=== PATIENT | female | born 1975 | race American Indian/Alaskan Native ===

== ENCOUNTER 2017-05-26 18:23 | Emergency (ER) | payer MEDICAID ==
[2017-05-26 18:32] VITALS: BP 174/107
--- NOTE | 2017-05-26 20:03 | Emergency Department Report ---
Abscess Boil HPI - HPI Chief Complaint: Skin/Abscess/Foreign Body Stated Complaint: KNOT ON RIGHT SHOULDER Time Seen by Provider: 05/26/17 20:02 Duration: >1 Week Location: Other (R SHOULDER) Severity: Mild History: Yes Previous History, No Fever, No Pain, No Purulent Drainage, No Numbness, No Foreign Body, No Insect Bite HPI: THIS CYST HAS BEEN ON R SHOULDER FOR MONTHS. CYST IN NATURE. NOT ABSCESS. NON ILL. NON TOXIC. NO FEVER. NO FLAT Home Medications: Previous Rx's Medication Instructions Recorded Last Taken Type Cephalexin [Keflex] 500 mg PO Q12HR #20 cap 05/26/17 Unknown Rx Allergies/Adverse Reactions: Allergies Allergy/AdvReac Type Severity Reaction Status Date / Time No Known Allergies Allergy Unverified 05/26/17 18:30 ED Review of Systems ROS: Stated complaint: KNOT ON RIGHT SHOULDER Other details as noted in HPI Comment: All other systems reviewed and negative Skin: other (R SHOULDER CYST) ED Past Medical Hx - Past Medical History Previous Medical History?: No - Surgical History Additional Surgical History: C/S - Social History Smoking Status: Never Smoker Substance Use Type: Alcohol - Medications Home Medications: Home Medications Medication Instructions Recorded Confirmed Last Taken Type Cephalexin [Keflex] 500 mg PO Q12HR #20 cap 05/26/17 Unknown Rx ED Abscess Boil Physical Exam - Exam General: Vital signs noted. No distress. Alert and acting appropriately. Front/Back of Body, Lg (Color): 1 - CYST Size: 2 cm Exam: Yes Surrounding Cellulites/Erythema (RED), Yes Normal Neurologic Exam, Yes Normal Circulation, No Tenderness, No Fluctuance, No Lymphangitis, No Crepitation, No Heart Murmur Exam: X FOR CYST EXAM WNL. S1 S2. LUNGS CTA. ABD SNT. NEURO INTACT I & D Note - I & D Note I & D Note: NONE ED Course Vital Signs 05/26/17 18:30 Temperature 98.7 F Pulse Rate 115 H Respiratory 18 Rate Blood Pressure 174/107 O2 Sat by Pulse 99 Oximetry - Reevaluation(s) Reevaluation #1: 05/26/17 20:27 TO ER W CYST ON R SHOULDER BP ELEVATED NO HX PT SAYS JUST WORRIED SHE TOOK EARLIER TODAY AND IT WAS N HR 100 ON EXAM NO FEVER NO CP NO SOB NON TOXIC APPEARING PT EDUCATED ON CYST V ABSCESS MEDICATED DC W OUTPT FOLLOW UP FOR BP AND FOR CYST Critical care attestation.: If time is entered above; I have spent that time in minutes in the direct care of this critically ill patient, excluding procedure time. ED Medical Decision Making - Medical Decision Making SEE NOTE - Differential Diagnosis ABSCESS V CYST ED Disposition Clinical Impression: Cyst, Elevated blood pressure reading Disposition: DC-01 TO HOME OR SELFCARE Is pt being admited?: No Does the pt Need Aspirin: No Condition: Stable Instructions: Heart Healthy Diet (ED), How to Take a Blood Pressure (ED), Perry's Cyst (ED) Additional Instructions: MONITOR YOUR BLOOD PRESSURE FOLLOW UP WITH PRIMARY MD THIS WEEK TO REEVALUATE- SEE LIST BELOW EXFOLIATE SKIN WELL KEFLEX ORDERED HERE TONIGHT EPSOM SALT SOAKS MAY HELP SEE DERM FOR FOLLOW UP RELATED TO CYST ON SHOULDER. LOW SALT DIET FOR BLOOD PRESSURE CONTROL CLEAN CYST WITH SOAP AND WATER Prescriptions: Cephalexin [Keflex] 500 mg PO Q12HR #20 cap Referrals: PRIMARY CARE, [Primary Care Provider] - 3-5 Days KHLOE WILLAMS MD [Staff Physician] - 3-5 Days NAZARIO CORRALES MD [Referring] - 3-5 Days [facility] [Outside] - 3-5 Days [facility] [Outside] - 3-5 Days Time of Disposition: 20:10
[2017-05-26] MEDS ORDERED: KEFLEX PO ONE (20:09)
== END 2017-05-26 20:36 | disposition home or self-care (01) ==
LOC: ED 18:23
DX: R03.0 Elevated blood-pressure reading, without diagnosis of hypertension (principal); M25.511 Pain in right shoulder
CPT/HCPCS: 99282

== ENCOUNTER 2018-03-12 07:52 | Emergency (ER) | payer MEDICAID ==
[2018-03-12] MEDS ORDERED: NACL 0.9% 1000 ML 1,000 ML IV ONE (08:00)
[2018-03-12 08:22] LABS: Basophils # (Auto) 0.1 K/mm3 (0.0-0.1); Basophils % (Auto) 0.9 % (0.0-1.8); Eosinophils # (Auto) 0.1 K/mm3 (0.0-0.4); Eosinophils % (Auto) 0.9 % (0.0-4.3); Hematocrit 39.3 % (30.3-42.9); Hemoglobin 13.4 gm/dl (10.1-14.3); Lymphocytes # (Auto) 1.9 K/mm3 (1.2-5.4); Lymphocytes % (Auto) 30.1 % (13.4-35.0); Mean Corpuscular HGB Conc 34 % (30-34); Mean Corpuscular Hemoglobin 29 pg (28-32); Mean Corpuscular Volume 86 fl (79-97); Monocytes # (Auto) 0.7 K/mm3 (0.0-0.8); Monocytes % (Auto) 10.7 % (0.0-7.3); Platelet Count 269 K/mm3 (140-440); Red Blood Count 4.57 M/mm3 (3.65-5.03); Red Cell Distribution Width 14.5 % (13.2-15.2)
[2018-03-12 08:36] LABS: Bilirubin,Urine NEG (Negative); Blood,Urine SM (Negative); Color,Urine Yellow (Yellow); Protein,Urine <15 mg/dL mg/dL (Negative)
[2018-03-12 08:39] LABS: Alanine Aminotransferase 15 units/L (7-56); Albumin 3.9 g/dL (3.9-5); BUN/Creatinine Ratio 17; Blood Urea Nitrogen 12 mg/dL (7-17); Calcium 8.6 mg/dL (8.4-10.2); Hemolysis Index 9
--- NOTE | 2018-03-12 08:57 | Emergency Department Report ---
ED General Adult HPI - General Chief complaint: Abdominal Pain Stated complaint: ABD PAIN/RIGHT WRIST PAIN Time Seen by Provider: 03/12/18 08:56 Source: patient Mode of arrival: Ambulatory Limitations: No Limitations - History of Present Illness Initial comments: 42-year-old female with a history of hypertension presents with the complaint of abdominal pain. Patient states she's been having abdominal pain in her upper abdominal region since Saturday. Patient denies vomiting or diarrhea. Patient states she's taken no meds for the pain. Patient states the pain is a 5 out of 10. Patient has had no fever. Patient denies any dysuria, hematuria, or urinary frequency. Patient denies any hematemesis or hematochezia. Patient also complains of right wrist pain for the past week but denies any trauma to her wrist. Patient has full range of motion at the wrists and denies fever. - Related Data Previous Rx's Medication Instructions Recorded Last Taken Type cephALEXin [Keflex] 500 mg PO Q12HR #20 cap 05/26/17 Unknown Rx Ciprofloxacin HCl [Ciprofloxacin 500 mg PO Q12H 7 Days #14 tab 03/12/18 Unknown Rx TAB] Ondansetron (Nf) [Zofran TAB] 4 mg PO Q8HR PRN #16 tablet 03/12/18 Unknown Rx metroNIDAZOLE [Flagyl] 500 mg PO Q12HR 7 Days #14 tab 03/12/18 Unknown Rx traMADol [Ultram] 50 mg PO Q6HR PRN #20 tablet 03/12/18 Unknown Rx Allergies Allergy/AdvReac Type Severity Reaction Status Date / Time No Known Allergies Allergy Verified 03/12/18 07:58 ED Review of Systems ROS: Stated complaint: ABD PAIN/RIGHT WRIST PAIN Other details as noted in HPI Constitutional: denies: chills, fever Eyes: denies: eye pain, eye discharge, vision change ENT: denies: ear pain, throat pain Respiratory: denies: cough, shortness of breath, wheezing Cardiovascular: denies: chest pain, palpitations Endocrine: no symptoms reported Gastrointestinal: abdominal pain. denies: nausea, diarrhea Genitourinary: denies: urgency, dysuria, discharge Musculoskeletal: arthralgia. denies: back pain, joint swelling Skin: denies: rash, lesions Neurological: denies: headache, weakness, paresthesias Psychiatric: denies: anxiety, depression Hematological/Lymphatic: denies: easy bleeding, easy bruising ED Past Medical Hx - Past Medical History Hx Hypertension: Yes - Surgical History Additional Surgical History: C/S - Social History Smoking Status: Never Smoker Substance Use Type: Alcohol - Medications Home Medications: Home Medications Medication Instructions Recorded Confirmed Last Taken Type cephALEXin [Keflex] 500 mg PO Q12HR #20 cap 05/26/17 Unknown Rx Ciprofloxacin HCl [Ciprofloxacin 500 mg PO Q12H 7 Days #14 tab 03/12/18 Unknown Rx TAB] Ondansetron (Nf) [Zofran TAB] 4 mg PO Q8HR PRN #16 tablet 03/12/18 Unknown Rx metroNIDAZOLE [Flagyl] 500 mg PO Q12HR 7 Days #14 tab 03/12/18 Unknown Rx traMADol [Ultram] 50 mg PO Q6HR PRN #20 tablet 03/12/18 Unknown Rx ED Physical Exam - General Limitations: No Limitations General appearance: alert, in no apparent distress, other (comfortable) - Head Head exam: Present: atraumatic, normocephalic - Eye Eye exam: Present: normal appearance - ENT ENT exam: Present: mucous membranes moist - Neck Neck exam: Present: normal inspection - Respiratory Respiratory exam: Present: normal lung sounds bilaterally. Absent: respiratory distress - Cardiovascular Cardiovascular Exam: Present: regular rate, normal rhythm. Absent: systolic murmur, diastolic murmur, rubs, gallop - GI/Abdominal GI/Abdominal exam: Present: soft, tenderness (mild tenderness in left upper quadrant), normal bowel sounds. Absent: guarding, rebound - Extremities Exam Extremities exam: Present: normal inspection, full ROM - Back Exam Back exam: Present: normal inspection - Neurological Exam Neurological exam: Present: alert, oriented X3 - Psychiatric Psychiatric exam: Present: normal affect, normal mood - Skin Skin exam: Present: warm, dry, intact, normal color. Absent: rash ED Course Vital Signs 03/12/18 03/12/18 07:58 11:11 Temperature 98.6 F Pulse Rate 82 78 Respiratory 18 18 Rate Blood Pressure 136/79 Blood Pressure 121/75 [Right] O2 Sat by Pulse 99 Oximetry ED Medical Decision Making - Lab Data Result diagrams: 03/12/18 08:03 03/12/18 08:03 - Radiology Data Radiology results: report reviewed - Differential Diagnosis Nephrolithiasis; UTI; electrolyte abnormality; anemia; Colitis;obstruction Critical care attestation.: If time is entered above; I have spent that time in minutes in the direct care of this critically ill patient, excluding procedure time. ED Disposition Clinical Impression: Tendonitis, Colitis, Abdominal pain Disposition: TO HOME OR SELFCARE Is pt being admited?: No Condition: Stable Instructions: Abdominal Pain (ED), Infectious Colitis (ED) Prescriptions: Ciprofloxacin HCl [Ciprofloxacin TAB] 500 mg PO Q12H 7 Days #14 tab metroNIDAZOLE [Flagyl] 500 mg PO Q12HR 7 Days #14 tab Ondansetron (Nf) [Zofran TAB] 4 mg PO Q8HR PRN #16 tablet PRN Reason: Nausea traMADol [Ultram] 50 mg PO Q6HR PRN #20 tablet PRN Reason: Pain Referrals: PRIMARY CARE, [Primary Care Provider] - 3-5 Days KHLOE WILLAMS MD [Staff Physician] - 3-5 Days Time of Disposition: 11:26 Print Language: LIBERIAN
[2018-03-12] MEDS ORDERED: NORCO 5/325 PO ONE (09:46)
--- NOTE | 2018-03-12 10:24 | Cat Scan Report ---
CT ABDOMEN PELVIS WITHOUT CONTRAST: HISTORY: abdominal pain. COMPARISON: none. TECHNIQUE: Helical CT in 1.25mm intervals without IV contrast. Sagittal and coronal reconstructions. FINDINGS: Lung bases: Normal. Liver: Normal. Biliary system: Normal. Pancreas: Normal. Spleen: Normal. Kidneys/ureters/bladder: A large unilocular cyst measures 7.2 cm in the mid left kidney. No evidence for mass, calculus or hydronephrosis. The ureters and bladder are unremarkable. Adrenal glands: Normal. Aorta: Normal. Intestines: No oral contrast was administered. There is suggestion of mild circumferential thickening of the colon near the hepatic flexure. A mild colitis could be considered. No evidence for obstruction or advanced inflammatory changes. Appendix: Normal. Pelvic viscera: Normal. Ascites: None. Adenopathy: None. Musculoskeletal: Normal. IMPRESSION: Question a mild colitis as outlined above. Otherwise, unremarkable exam. Large left renal cyst.
[2018-03-12 11:57] VITALS: BP 120/74
== END 2018-03-12 11:56 | disposition home or self-care (01) ==
LOC: ED 07:52
DX: M77.9 Enthesopathy, unspecified (principal); K52.9 Noninfective gastroenteritis and colitis, unspecified; R10.10 Upper abdominal pain, unspecified; I10 Essential (primary) hypertension
CPT/HCPCS: 36415; 74176; 80053; 81001; 84703; 85025

== ENCOUNTER 2018-07-16 09:56 | Emergency (ER) | payer MEDICAID ==
--- NOTE | 2018-07-16 12:48 | Emergency Department Report ---
ED Back Pain/Injury HPI - General Chief Complaint: Back Pain/Injury Stated Complaint: LOWER BACK PAIN Time Seen by Provider: 07/16/18 12:04 Source: patient Limitations: No Limitations - History of Present Illness Initial Comments: Patient is a 42-year-old Female who is presenting with low back pain. Patient states is been intermittent for the last several months with progressively worsening. Patient is worse early in the morning she feels very stiff and has trouble getting out of bed. There is some improvement during the daytime when she is active. Patient denies any bowel or bladder dysfunction. She states is been no hematuria dysuria or urinary frequency. Patient also has no cough, congestion fevers or chills. - Related Data Previous Rx's Medication Instructions Recorded Last Taken Type cephALEXin [Keflex] 500 mg PO Q12HR #20 cap 05/26/17 Unknown Rx Ciprofloxacin HCl [Ciprofloxacin 500 mg PO Q12H 7 Days #14 tab 03/12/18 Unknown Rx TAB] Ondansetron (Nf) [Zofran TAB] 4 mg PO Q8HR PRN #16 tablet 03/12/18 Unknown Rx metroNIDAZOLE [Flagyl] 500 mg PO Q12HR 7 Days #14 tab 03/12/18 Unknown Rx traMADol [Ultram] 50 mg PO Q6HR PRN #20 tablet 03/12/18 Unknown Rx Ibuprofen [Motrin] 600 mg PO Q8H PRN #20 tablet 07/16/18 Unknown Rx methOCARBAMOL [Robaxin TAB] 500 mg PO Q6H PRN #15 tablet 07/16/18 Unknown Rx traMADol [Ultram] 50 mg PO Q6HR PRN #10 tablet 07/16/18 Unknown Rx Allergies Allergy/AdvReac Type Severity Reaction Status Date / Time No Known Allergies Allergy Verified 03/12/18 07:58 ED Review of Systems ROS: Stated complaint: LOWER BACK PAIN Other details as noted in HPI Comment: All other systems reviewed and negative ED Back Pain Physical Exam - Exam General: Vital signs noted. No distress. Alert and acting appropriately. Back/Abdomen: Yes Perilumbar Tenderness, No Abdominal Tenderness, No Perithoracic Tenderness, No Sacroiliac Tenderness, No Flank Tenderness, No Straight Leg Raise Pain Neuro: Yes Normal Sensation, Yes Normal DTR's, Yes Normal Gait, No Motor Weakness ED Course Vital Signs 07/16/18 10:18 Temperature 98.5 F Pulse Rate 79 Respiratory 18 Rate Blood Pressure 154/93 O2 Sat by Pulse 100 Oximetry ED Medical Decision Making - Medical Decision Making Be referred to orthopedics. Patient will be given this wasn't adequately be discharged home. Critical care attestation.: If time is entered above; I have spent that time in minutes in the direct care of this critically ill patient, excluding procedure time. ED Disposition Clinical Impression: Lumbar strain Qualifiers: Encounter type: initial encounter Qualified Code(s): S39.012A - Strain of muscle, fascia and tendon of lower back, initial encounter Disposition: DC- TO HOME OR SELFCARE Is pt being admited?: No Does the pt Need Aspirin: No Condition: Stable Instructions: Muscle Strain (ED), Low Back Strain (ED) Referrals: GINA PALMER MD [Staff Physician] - 3-5 Days Time of Disposition: 12:48
== END 2018-07-16 13:10 | disposition home or self-care (01) ==
LOC: ED 09:56
CPT/HCPCS: 99282

== ENCOUNTER 2018-12-12 15:36 | Emergency (ER) | payer MEDICAID ==
[2018-12-12 15:45] VITALS: BP 142/89
[2018-12-12] MEDS ORDERED: FLEXERIL PO ONE (17:25)
[2018-12-12] MEDS ORDERED: TORADOL IM ONE (17:25)
--- NOTE | 2018-12-12 17:38 | Emergency Department Report ---
Upper Extremity - HPI Chief Complaint: Extremity Injury, Upper Stated Complaint: LT WRIST PAIN Time Seen by Provider: 12/12/18 16:40 Upper Extremity: Left Wrist, Left Hand Occurred When: 2 Days Mechanism: Other (no injuries or trauma to the hand or wrist) Severity: mild Symptoms: Yes Pain with Movement, No Deformity, No Limited Range of Movement, No Numbness, No Weakness, No Swelling, No Bruising/Ecchymosis, No Laceration or Abrasion Other History: She is a 43-year-old female states that she works in [employer] presenting to the ED complaining of left wrist pain 2 days. Patient states yesterday she put on a brace illness helped a little bit. Patient states she has not taken any medications for this pain. She denies any injuries trauma or falls. ED Review of Systems ROS: Stated complaint: LT WRIST PAIN Other details as noted in HPI Comment: All other systems reviewed and negative ED Past Medical Hx - Past Medical History Hx Hypertension: Yes - Surgical History Additional Surgical History: C section 2007 - Social History Smoking Status: Never Smoker Substance Use Type: Alcohol - Medications Home Medications: Home Medications Medication Instructions Recorded Confirmed Last Taken Type cephALEXin [Keflex] 500 mg PO Q12HR #20 cap 05/26/17 Unknown Rx Ciprofloxacin HCl [Ciprofloxacin 500 mg PO Q12H 7 Days #14 tab 03/12/18 Unknown Rx TAB] Ondansetron (Nf) [Zofran TAB] 4 mg PO Q8HR PRN #16 tablet 03/12/18 Unknown Rx metroNIDAZOLE [Flagyl] 500 mg PO Q12HR 7 Days #14 tab 03/12/18 Unknown Rx traMADol [Ultram] 50 mg PO Q6HR PRN #20 tablet 03/12/18 Unknown Rx methOCARBAMOL [Robaxin TAB] 500 mg PO Q6H PRN #15 tablet 07/16/18 Unknown Rx traMADol [Ultram] 50 mg PO Q6HR PRN #10 tablet 07/16/18 Unknown Rx Cyclobenzaprine [Flexeril] 10 mg PO QHS PRN #15 tablet 12/12/18 Unknown Rx Ibuprofen [Motrin 600 MG tab] 600 mg PO Q8H PRN #20 tablet 12/12/18 Unknown Rx Upper Extremity Exam - Exam General: Vital signs noted. No distress. Alert and acting appropriately. Head and Torso: No HEENT Abnormality, No Neck Tenderness, No Chest/Lungs Abnormality, No Abdominal Tenderness, No Back Tenderness Shoulder Exam: Yes Normal Range of Motion in Shoulder, No Shoulder Tenderness, No Clavicle Tenderness, No Shoulder Deformity, No AC Joint Tenderness Arm Exam: No Arm/Humerus Tenderness, No Arm Deformity Elbow: No Elbow Tenderness, No Normal Range of Motion in Elbow, No Elbow Deformity Forearm: No Forearm Tenderness, No Forearm Deformity, No Pain with Pronation, No Pain with Supination Wrist: Yes Wrist Tenderness (mild tenderness to palpation of the left wrist), Yes Normal ROM in Wrist, No Wrist Deformity, No Snuffbox Tenderness, No Pain with Axial Thumb Compression Hand: Yes Normal ROM in Digit(s), No Hand Tenderness, No Hand Deformity, No Digit Tenderness, No Digit(s) Deformity, No Tendon Dysfunction CMS Exam: No Broken Skin, No Normal Distal Pulses, No Normal Capillary Refill, No Normal Distal Sensation ED Course Vital Signs 12/12/18 15:41 Temperature 98.2 F Pulse Rate 82 Respiratory 18 Rate Blood Pressure 142/89 O2 Sat by Pulse 100 Oximetry ED Medical Decision Making - Medical Decision Making 43-year-old female presents to ED with pouch of the left wrist ED course: Patient received Toradol and Flexeril in ED. Vital signs are normal patient is in no acute distress Discussed with patient follow-up with primary care physician. Discussed the patient and take medications as prescribed. Patient has no neurological deficit. Patient is alert and oriented 3 and understands all instructions given. Discussed drowsiness effect of Flexeril makes her drowsy and not to operate machinery while taking flexeril Critical care attestation.: If time is entered above; I have spent that time in minutes in the direct care of this critically ill patient, excluding procedure time. ED Disposition Clinical Impression: Strain of left wrist Disposition: DC-01 TO HOME OR SELFCARE Is pt being admited?: No Does the pt Need Aspirin: No Condition: Stable Instructions: Muscle Strain (ED) Additional Instructions: Make sure to follow up with the primary care physician as discussed. Take all your medications as you've been prescribed. If you have any worsening symptoms or develop new symptoms please return to ED immediately. Prescriptions: Cyclobenzaprine [Flexeril] 10 mg PO QHS PRN #15 tablet PRN Reason: Muscle Spasm Ibuprofen [Motrin 600 MG tab] 600 mg PO Q8H PRN #20 tablet PRN Reason: Pain Referrals: CARBUCCIA,PERCY, MD [Primary Care Provider] - 3-5 Days GINA PALMER MD [Staff Physician] - 3-5 Days Forms: Accompanied Note, Work/School Release Form(ED) Time of Disposition: 17:38
== END 2018-12-12 18:33 | disposition home or self-care (01) ==
LOC: ED 15:36
DX: S66.912A Strain of unspecified muscle, fascia and tendon at wrist and hand level, left hand, initial encounter (principal); I10 Essential (primary) hypertension; Z79.1 Long term (current) use of non-steroidal anti-inflammatories (NSAID); Z79.899 Other long term (current) drug therapy; W22.8XXA Striking against or struck by other objects, initial encounter; Y93.89 Activity, other specified; Y92.69 Other specified industrial and construction area as the place of occurrence of the external cause; Y99.8 Other external cause status
CPT/HCPCS: 96372; 99282; J1885

== ENCOUNTER 2021-08-05 00:57 | Emergency (ER) | payer OTHER ==
[2021-08-05] MEDS ORDERED: ONDANSETRON 4 MG/2 ML INJ IV ONE (02:25)
[2021-08-05] MEDS ORDERED: SODIUM CHLORIDE 0.9% 1000 ML 1,000 ML IV ONE (02:25)
[2021-08-05] MEDS ORDERED: FAMOTIDINE 20 MG/2 ML INJ IV ONE (02:25)
[2021-08-05] MEDS ORDERED: MORPHINE 4 MG/1 ML INJ IV ONE (02:25)
--- NOTE | 2021-08-05 02:25 | Emergency Department Report ---
ED Abdominal Pain HPI - General Chief Complaint: Abdominal Pain Stated Complaint: ABD PAIN Time Seen by Provider: 08/05/21 02:20 Source: patient Mode of arrival: Ambulatory Limitations: No Limitations - History of Present Illness Initial Comments: 45 yo AA female comes to ER co bilateral upper quadrant pain. No fever. No chills. No n/v/d. Has had this pain in the past. Patient states last year she had blood clots to abdominal area, and is currently taking Eliquis, states that she is compliant with her medications. Rated symptoms as moderate in severity. It is different than her GERD. In 2000 patient was admitted for clot and the [facility]. Does also have a history of pulmonary emboli. Shes had EGD in the past that was normal. PCP [facility] MD Complaint: abdominal pain -: Gradual, days(s) Location: LUQ, RUQ Radiation: none Migration to: no migration Severity: moderate Severity scale (0 -10): 9 Quality: aching Consistency: constant Improves With: nothing Worsens With: nothing Associated Symptoms: denies other symptoms. denies: nausea, vomiting, diarrhea, fever, chills, constipation, dysuria, hematemesis, hematochezia, melena, hematuria, anorexia, syncope - Related Data Previous Rx's Medication Instructions Recorded Last Taken Type Apixaban [Eliquis] 5 mg PO . DIRECTED #74 tablet 09/10/20 Unknown Rx Dicyclomine [Bentyl] 20 mg PO QID #60 tablet 08/05/21 Unknown Rx cephALEXin [Keflex] 500 mg PO Q12HR #14 cap 08/05/21 Unknown Rx Allergies Allergy/AdvReac Type Severity Reaction Status Date / Time No Known Allergies Allergy Verified 08/05/21 01:39 ED Review of Systems ROS: Stated complaint: ABD PAIN Other details as noted in HPI Constitutional: denies: chills, fever Eyes: denies: eye pain, eye discharge, vision change ENT: denies: ear pain, throat pain Respiratory: denies: cough, shortness of breath, wheezing Cardiovascular: denies: chest pain, palpitations Endocrine: no symptoms reported Gastrointestinal: abdominal pain. denies: nausea, diarrhea Genitourinary: denies: urgency, dysuria, discharge Musculoskeletal: denies: back pain, joint swelling, arthralgia Skin: denies: rash, lesions Neurological: denies: headache, weakness, paresthesias Psychiatric: denies: anxiety, depression Hematological/Lymphatic: denies: easy bleeding, easy bruising ED Past Medical Hx - Past Medical History Previous Medical History?: Yes Hx Hypertension: Yes Hx CVA: No Hx Heart Attack/AMI: No Hx Congestive Heart Failure: No Hx Diabetes: No Hx Deep Vein Thrombosis: No (PE) Hx Pulmonary Embolism: Yes Hx GERD: Yes Hx Liver Disease: No Hx Renal Disease: No Hx Sickle Cell Disease: No Hx Arthritis: No (denies lupus) Hx Headaches / Migraines: No Hx Seizures: No Hx Kidney Stones: No Hx Psychiatric Treatment: No Hx Asthma: No Hx COPD: No Hx Tuberculosis: No Hx Dementia: No Hx HIV: No Additional medical history: PE in 2006 sp csec; and 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 DIRECTED #74 tablet 09/10/20 Unknown Rx Dicyclomine [Bentyl] 20 mg PO QID #60 tablet 08/05/21 Unknown Rx cephALEXin [Keflex] 500 mg PO Q12HR #14 cap 08/05/21 Unknown Rx ED Physical Exam - General Limitations: No Limitations General appearance: alert, in no apparent distress - Head Head exam: Present: atraumatic, normocephalic - Eye Eye exam: Present: normal appearance - ENT ENT exam: Present: mucous membranes moist - Neck Neck exam: Present: normal inspection - Respiratory Respiratory exam: Present: normal lung sounds bilaterally. Absent: respiratory distress - Cardiovascular Cardiovascular Exam: Present: regular rate, normal rhythm. Absent: systolic murmur, diastolic murmur, rubs, gallop - GI/Abdominal GI/Abdominal exam: Present: soft, tenderness (periumbilical) - Extremities Exam Extremities exam: Present: normal inspection - Back Exam Back exam: Present: normal inspection - Neurological Exam Neurological exam: Present: alert, oriented X3 - Psychiatric Psychiatric exam: Present: normal affect, normal mood - Skin Skin exam: Present: warm, dry, intact, normal color. Absent: rash ED Course Vital Signs 08/05/21 08/05/21 01:33 03:14 Temperature 98.5 F Pulse Rate 98 H Respiratory 14 16 Rate Blood Pressure 148/90 [Left] O2 Sat by Pulse 99 Oximetry ED Medical Decision Making - Lab Data Result diagrams: 08/05/21 02:37 08/05/21 02:37 - Radiology Data Radiology results: report reviewed - Medical Decision Making Abdominal pain, CT did not show any acute findings, urine consistent with cystitis. Critical care attestation.: If time is entered above; I have spent that time in minutes in the direct care of this critically ill patient, excluding procedure time. ED Disposition Clinical Impression: Abdominal pain Qualifiers: Abdominal location: generalized Qualified Code(s): R10.84 - Generalized abdominal pain UTI (urinary tract infection) Qualifiers: Urinary tract infection type: acute cystitis Hematuria presence: without hematuria Qualified Code(s): N30.00 - Acute cystitis without hematuria Disposition: 01 HOME / SELF CARE / HOMELESS Is pt being admited?: No Does the pt Need Aspirin: No Condition: Stable Instructions: Abdominal Pain (ED) Prescriptions: Dicyclomine [Bentyl] 20 mg PO QID #60 tablet cephALEXin [Keflex] 500 mg PO Q12HR #14 cap Referrals: PRIMARY CARE, [Primary Care Provider] - 3-5 Days
[2021-08-05] MEDS ORDERED: ALUM-MAG HYDROXIDE-SIMETHICONE 200-200-20MG/5ML ORAL LIQD 30 ML PO ONE (02:27)
[2021-08-05 03:19] LABS: Alanine Aminotransferase 12 units/L (7-56); Albumin 4.1 g/dL (3.9-5); BUN/Creatinine Ratio 17; Bilirubin,Direct < 0.2 mg/dL (0-0.2); Blood Urea Nitrogen 12 mg/dL (7-17); Calcium 8.8 mg/dL (8.4-10.2); Hemolysis Index 3
[2021-08-05 03:23] LABS: INR 0.88 (0.87-1.13)
[2021-08-05 03:46] LABS: Basophils % (Auto) 0.8 % (0.0-1.8); Eosinophils % (Auto) 0.8 % (0.0-4.3); Hematocrit 39.1 % (30.3-42.9); Hemoglobin 12.5 gm/dl (10.1-14.3); Mean Corpuscular HGB Conc 32 % (30-34); Mean Corpuscular Volume 83 fl (79-97); Monocytes # (Auto) 0.3 K/mm3 (0.0-0.8); Monocytes % (Auto) 6.2 % (0.0-7.3); Platelet Count 338 K/mm3 (140-440); Red Cell Distribution Width 16.5 % (13.2-15.2)
[2021-08-05 04:01] LABS: Bacteria,Urine 1+ /HPF (Negative); Bilirubin,Urine NEG (Negative); Blood,Urine MOD (Negative); Color,Urine Yellow (Yellow); Mucus,Urine FEW /HPF; Protein,Urine <15 mg/dL mg/dL (Negative)
[2021-08-05 04:04] LABS: HCG Qualitative,Urine Negative (Negative)
--- NOTE | 2021-08-05 04:44 | Cat Scan Report ---
CT ABDOMEN AND PELVIS WITH CONTRAST INDICATION / CLINICAL INFORMATION: Abdominal Pain. TECHNIQUE: Axial CT images were obtained through the abdomen and pelvis after Omnipaque 300, 100 cc I V contrast. All CT scans at this location are performed using CT dose reduction for ALARA by means o f automated exposure control. COMPARISON: 09/08/2020 FINDINGS: LOWER CHEST: Small hiatal hernia. LIVER: Probable subcentimeter cyst anteriorly. GALLBLADDER: No significant abnormality. BILE DUCTS: No significant abnormality. PANCREAS: No significant abnormality. SPLEEN: No significant abnormality. ADRENALS: No significant abnormality. RIGHT KIDNEY / URETER: No significant abnormality. LEFT KIDNEY / URETER: 8.2 cm cyst at the lower pole. STOMACH / SMALL BOWEL: No significant abnormality. COLON: No significant abnormality. APPENDIX: No significant abnormality. PERITONEUM: Trace pelvic free fluid. No free air. Mild inflammation at the root of the small bowel me sentery tracking along the anterior peritoneum. The patient previously had portal vein thrombosis in this region. This has resolved. LYMPH NODES: No significant adenopathy. VASCULAR STRUCTURES: No significant abnormality. URINARY BLADDER: No significant abnormality. REPRODUCTIVE ORGANS: Fibroid uterus. ADDITIONAL FINDINGS: None. SKELETAL SYSTEM: No significant abnormality. IMPRESSION: Previously seen portal vein thrombosis has resolved. Inflammation at the root of the sma ll bowel mesentery in this region is of uncertain chronicity but may be related to the previous rolando l vein thrombosis. Signer Name: Aldair Bustos MD Signed: 08/05/2021 4:39 AM Workstation Name: [id number]
[2021-08-05 05:14] VITALS: BP 145/81
== END 2021-08-05 05:16 | disposition home or self-care (01) ==
LOC: ED 00:57
DX: N39.0 Urinary tract infection, site not specified (principal); I10 Essential (primary) hypertension; K21.9 Gastro-esophageal reflux disease without esophagitis; Z79.899 Other long term (current) drug therapy
CPT/HCPCS: 36415; 74177; 80048; 80076; 81001; 81025; 82150; 83690; 85025; 85610; 87086; 96361; 96374; 96375; 99284; J2270; J2405; J3490; J7030; Q9967; Q0162